=== PATIENT | female | born 1955 | race Caucasian/White ===

== ENCOUNTER 2022-01-11 11:36 | Outpatient (CLI) | payer BC | END 2022-01-11 11:37 | disposition home or self-care (01) | LOC: CSHMAMMO 11:36 | PROVIDERS: ATTEND Obstetrics & Gynecology | DX: M85.89 Other specified disorders of bone density and structure, multiple sites (principal); N95.1 Menopausal and female climacteric states; E05.00 Thyrotoxicosis with diffuse goiter without thyrotoxic crisis or storm | CPT/HCPCS: 77080 ==

== ENCOUNTER 2023-02-21 15:01 | Outpatient (CLI) | payer MEDICARE, BC | END 2023-02-21 15:02 | disposition home or self-care (01) | LOC: CSHMAMMO 15:01 | PROVIDERS: ATTEND Obstetrics & Gynecology | DX: Z12.31 Encounter for screening mammogram for malignant neoplasm of breast (principal); M85.89 Other specified disorders of bone density and structure, multiple sites; Z91.89 Other specified personal risk factors, not elsewhere classified | CPT/HCPCS: 77063; 77067; 77080 ==